=== PATIENT | male | born 1940 | race Caucasian/White ===

== ENCOUNTER 2017-06-20 12:42 | Inpatient (IN) | payer MEDICARE, OTHER ==
[2017-06-20] MEDS ORDERED: Pantoprazole 40 MG Vial IVPUSH ONE (13:41)
--- NOTE | 2017-06-20 13:44 | EDM.PDOC ---
ED HPI GENERAL MEDICAL PROBLEM - General Chief Complaint: Gastrointestinal Problem Stated Complaint: CONFUSED,VOMITING,BACK PAIN Time Seen by Provider: 06/20/17 13:22 Source of Information: Reports: Patient History Limitations: Reports: No Limitations - History of Present Illness INITIAL COMMENTS - FREE TEXT/NARRATIVE: Patient is a 68-year-old male with a history of tia's and GI bleed who presents to the ED with complaints of dark tarry stools. Patient is on xarelto. Also has a history of early onset dementia/Alzheimer's. Patient's had 3 bowel movements earlier today described as black in color large volume. Of note states she found the patient had vomited approximately 1:00 last night while sleeping. It appeared to be his diet soda. Patient's had no additional episodes of vomiting since this episode. There is concerns of patient may have aspirated due to some mild wheezing present. He has no cough at this point. In addition states patient has had some episodes of increased confusion over the past day or so. He is back to baseline this afternoon. Patient has no dizziness, fever/chills, nausea/vomiting, chest pain, shortness of breath, abdominal pain, dysuria, or any additional complaints. - Related Data Allergies Allergy/AdvReac Type Severity Reaction Status Date / Time No Known Allergies Allergy Verified 06/20/17 12:50 Home Meds: Home Meds Furosemide [Lasix] 40 mg PO DAILY 01/06/16 [History] Propranolol [Inderal LA] 80 mg PO DAILY 01/06/16 [History] Rivaroxaban [Xarelto] 1 tab PO DAILY 01/06/16 [History] atorvaSTATin [Lipitor] 80 mg PO DAILY 01/06/16 [History] B2/Vit A,C & E/Lut/Zeaxanth/Mn [Icaps] 1 tab PO DAILY 06/20/17 [History] Donepezil [Aricept] 10 mg PO BEDTIME 06/20/17 [History] Erythromycin Base [Erythromycin 0.5% Ophth Oint] 1 applic EYERT BEDTIME [History] Venlafaxine HCl [Venlafaxine ER] 75 mg PO DAILY 06/20/17 [History] Past Medical History Cardiovascular History: Reports: Afib Gastrointestinal History: Reports: GI Bleed - Past Surgical History Cardiovascular Surgical History: Reports: Aneurysm, Other (See Below) Other Cardiovascular Surgeries/Procedures: aneurysm repair Social & Family History - Tobacco Use Smoking Status *Q: Unknown Ever Smoked ED ROS GENERAL - Review of Systems Review Of Systems: ROS reveals no pertinent complaints other than HPI. ED EXAM, GI/ABD - Physical Exam Exam: See Below Exam Limited By: No Limitations General Appearance: Alert, WD/WN, No Apparent Distress Ears: Hearing Grossly Normal Nose: Normal Inspection Throat/Mouth: Normal Voice, No Airway Compromise, Other (Oral mucosa is moist) Neck: Normal Inspection, Supple Respiratory/Chest: No Respiratory Distress, Lungs Clear, Normal Breath Sounds, No Accessory Muscle Use, Chest Non-Tender Cardiovascular: Normal Peripheral Pulses, Regular Rate, Rhythm, Systolic Murmur (Faint) GI/Abdominal Exam: Normal Bowel Sounds, Soft, Non-Tender, No Organomegaly, No Distention Rectal (Males) Exam: Normal Rectal Tone, Black Stool, Heme + Stool. No: Tenderness Back Exam: Normal Inspection Extremities: Normal Inspection, Normal Range of Motion, Non-Tender, No Pedal Edema Neurological: Alert, Oriented, CN II-XII Intact, Normal Cognition, No Motor/ Sensory Deficits, Other (moves all extremities. no slurred speech. ) Psychiatric: Normal Affect, Normal Mood Skin Exam: Warm, Dry, Intact Course - Vital Signs Last Recorded V/S: Last Vital Signs Temp 96.8 F 06/21/17 14:00 Pulse 121 H 06/21/17 18:07 Resp 20 06/21/17 18:07 BP 182/158 H 06/21/17 17:08 Pulse Ox 97 06/21/17 18:07 - Orders/Labs/Meds Labs: Laboratory Tests 06/20/17 06/20/17 06/20/17 Range/Units 02:03 02:03 14:03 WBC 7.20 (4.23-9.07) K/mm3 RBC 3.32 L (4.63-6.08) M/mm3 Hgb 9.5 L (13.7-17.5) gm/L Hct 30.7 L (40.1-51.0) % MCV 92.5 H (79.0-92.2) fl MCH 28.6 (25.7-32.2) pg MCHC 30.9 L (32.2-35.5) g/dl RDW Std Deviation 50.1 H (35.1-43.9) fL Plt Count 207 (163-337) K/mm3 MPV 9.9 (9.4-12.3) fl Neut % (Auto) 64.4 (34.0-67.9) % Lymph % (Auto) 22.9 (21.8-53.1) % Emanuel % (Auto) 11.1 (5.3-12.2) % Eos % (Auto) 1.0 (0.8-7.0) Baso % (Auto) 0.3 (0.1-1.2) % Neut # (Auto) 4.64 (1.78-5.38) K/mm3 Lymph # (Auto) 1.65 (1.32-3.57) K/mm3 Emanuel # (Auto) 0.80 (0.30-0.82) K/mm3 Eos # (Auto) 0.07 (0.04-0.54) K/mm3 Baso # (Auto) 0.02 (0.01-0.08) K/mm3 PT (8.0-13.0) SECONDS INR APTT (22-36) SECONDS Sodium (136-145) mEq/L Potassium (3.5-5.1) mEq/L Chloride (98-107) mEq/L Carbon Dioxide (21-32) mEq/L Anion Gap (5-15) BUN (7-18) mg/dL Creatinine (0.7-1.3) mg/dL Est Cr Clr Drug Dosing mL/min Estimated GFR (MDRD) (>60) mL/min BUN/Creatinine Ratio (14-18) Glucose (83-115) mg/dL Calcium (8.5-10.1) mg/dL Total Bilirubin (0.2-1.0) mg/dL AST (15-37) U/L ALT (16-63) U/L Alkaline Phosphatase (46-116) U/L Troponin I (0.00-0.056) ng/mL C-React Prot High Sens 2.31 mg/L Total Protein (6.4-8.2) g/dl Albumin (3.4-5.0) g/dl Globulin gm/dL Albumin/Globulin Ratio (1-2) Blood Type B POSITIVE Gel Antibody Screen Negative 11/06/17 11/06/17 11/06/17 Range/Units 14:03 14:03 14:03 WBC (4.23-9.07) K/mm3 RBC (4.63-6.08) M/mm3 Hgb (13.7-17.5) gm/L Hct (40.1-51.0) % MCV (79.0-92.2) fl MCH (25.7-32.2) pg MCHC (32.2-35.5) g/dl RDW Std Deviation (35.1-43.9) fL Plt Count (163-337) K/mm3 MPV (9.4-12.3) fl Neut % (Auto) (34.0-67.9) % Lymph % (Auto) (21.8-53.1) % Emanuel % (Auto) (5.3-12.2) % Eos % (Auto) (0.8-7.0) Baso % (Auto) (0.1-1.2) % Neut # (Auto) (1.78-5.38) K/mm3 Lymph # (Auto) (1.32-3.57) K/mm3 Emanuel # (Auto) (0.30-0.82) K/mm3 Eos # (Auto) (0.04-0.54) K/mm3 Baso # (Auto) (0.01-0.08) K/mm3 PT 12.5 (8.0-13.0) SECONDS INR 1.14 APTT 32 (22-36) SECONDS Sodium 141 (136-145) mEq/L Potassium 4.6 (3.5-5.1) mEq/L Chloride 109 H (98-107) mEq/L Carbon Dioxide 22 (21-32) mEq/L Anion Gap 14.6 (5-15) BUN 64 H (7-18) mg/dL Creatinine 1.1 (0.7-1.3) mg/dL Est Cr Clr Drug Dosing 51.74 mL/min Estimated GFR (MDRD) > 60 (>60) mL/min BUN/Creatinine Ratio 58.2 H (14-18) Glucose 99 (83-115) mg/dL Calcium 8.7 (8.5-10.1) mg/dL Total Bilirubin 0.7 (0.2-1.0) mg/dL AST 24 (15-37) U/L ALT 25 (16-63) U/L Alkaline Phosphatase 99 (46-116) U/L Troponin I 0.025 (0.00-0.056) ng/mL C-React Prot High Sens mg/L Total Protein 6.5 (6.4-8.2) g/dl Albumin 3.1 L (3.4-5.0) g/dl Globulin 3.4 gm/dL Albumin/Globulin Ratio 0.9 L (1-2) Blood Type Gel Antibody Screen Meds: Medications Discontinued Medications Generic Name Dose Route Start Last Admin Trade Name Freq PRN Reason Stop Dose Admin Acetaminophen 650 mg 06/20/17 17:49 Tylenol RECTAL Q4H PRN Pain (mild 1-3) Albuterol/Ipratropium 3 ml 06/20/17 17:49 Duoneb 3.0-0.5 Mg/3 Ml NEB Q4H PRN Shortness Of Breath/wheezing Ceftriaxone Sodium 2 gm 06/21/17 18:00 Rocephin IVPUSH Q24H MARILYNN Erythromycin gm 06/20/17 21:00 Erythromycin 0.5% Ophth Oint EYERT BEDTIME MARILYNN Furosemide 40 mg 06/21/17 09:00 Lasix PO DAILY MARILYNN Furosemide 20 mg 06/21/17 14:14 06/21/17 16:34 Lasix IVPUSH 06/21/17 14:15 Not Given ONETIME ONE Furosemide 20 mg 06/21/17 16:33 06/21/17 17:09 Lasix IVPUSH 06/21/17 16:34 20 mg ONETIME ONE Administration Haloperidol Lactate Confirm 06/20/17 23:07 06/20/17 23:25 Haldol Administered 06/20/17 23:08 Not Given Dose 5 mg .ROUTE .STK-MED ONE Haloperidol Lactate 3 mg 06/20/17 23:17 06/20/17 23:24 Haldol IM 06/20/17 23:18 3 mg ONETIME ONE Administration Haloperidol Lactate 2 mg 06/20/17 23:20 06/20/17 23:26 Haldol IM 06/20/17 23:21 2 mg ONETIME ONE Administration Haloperidol Lactate 2 mg 06/20/17 23:38 06/20/17 23:51 Haldol IM 06/20/17 23:39 2 mg ONETIME ONE Administration Haloperidol Lactate 5 mg 06/21/17 08:20 11/07/17 08:34 Haldol IM 06/21/17 08:21 5 mg ONETIME ONE Administration Haloperidol Lactate 5 mg 06/21/17 11:14 Haldol IM Q8H PRN restlessness Haloperidol Lactate Confirm 06/21/17 11:51 06/21/17 12:17 Haldol Administered 06/21/17 11:52 Not Given Dose 5 mg .ROUTE .STK-MED ONE Haloperidol Lactate 2 mg 06/21/17 11:56 06/21/17 12:12 Haldol IVPUSH 06/21/17 11:57 2 mg ONETIME ONE Administration Haloperidol Lactate 4 mg 06/21/17 15:18 06/21/17 15:29 Haldol IVPUSH 06/21/17 15:19 4 mg ONETIME ONE Administration Haloperidol Lactate 2 mg 06/21/17 17:13 06/21/17 17:23 Haldol IVPUSH 06/21/17 17:14 2 mg ONETIME ONE Administration Hydralazine HCl 20 mg 06/20/17 18:06 Apresoline PO Q6H PRN Hypertension Hydromorphone HCl 0.25 mg 06/20/17 17:49 Dilaudid IVPUSH Q2H PRN Pain (severe 7-10) Hydromorphone HCl 0.25 mg 06/21/17 08:37 Dilaudid IVPUSH Q2H PRN Pain (severe 7-10) Sodium Chloride 1,000 mls @ 75 mls/hr 06/20/17 13:45 06/20/17 14:55 Normal Saline IV 75 mls/hr ASDIRECTED MARILYNN Administration Ceftriaxone Sodium 2 gm/ 100 mls @ 200 mls/hr 06/21/17 17:42 06/21/17 17:57 Sodium Chloride IV 06/21/17 18:11 200 mls/hr ONETIME ONE Administration Levalbuterol HCl 0.63 mg 06/21/17 13:57 06/21/17 14:23 Xopenex NEB 0.63 mg Q6HRRT PRN Administration Dyspnea Lorazepam 1 mg 06/20/17 22:13 06/21/17 11:43 Ativan IVPUSH 1 mg Q6H PRN Administration anxiety Lorazepam Confirm 06/20/17 23:07 06/20/17 23:25 Ativan Administered 06/20/17 23:08 Not Given Dose 2 mg .ROUTE .STK-MED ONE Lorazepam 2 mg 06/20/17 23:21 06/20/17 23:26 Ativan IM 06/20/17 23:22 2 mg ONETIME ONE Administration Lorazepam 1 mg 06/20/17 23:38 06/20/17 23:50 Ativan IM 06/20/17 23:39 1 mg ONETIME ONE Administration Lorazepam 1 mg 06/21/17 08:26 Ativan IM Q4H PRN restlessness Lorazepam 2 mg 06/21/17 11:14 Ativan IM Q6H PRN Anxiety Lorazepam 1 mg 06/21/17 12:07 06/21/17 12:13 Ativan IVPUSH 06/21/17 12:08 1 mg ONETIME ONE Administration Lorazepam Confirm 06/21/17 12:05 06/21/17 12:17 Ativan Administered 06/21/17 12:06 Not Given Dose 2 mg .ROUTE .STK-MED ONE Lorazepam 1 mg 06/21/17 15:20 06/21/17 15:32 Ativan IVPUSH 06/21/17 15:21 1 mg ONETIME ONE Administration Lorazepam 1 mg 06/21/17 17:14 06/21/17 17:23 Ativan IVPUSH 06/21/17 17:15 1 mg ONETIME ONE Administration Metoprolol Tartrate 5 mg 06/20/17 18:06 06/21/17 13:53 Lopressor IVPUSH 5 mg Q4H PRN Administration Tachycardia Metoprolol Tartrate 5 mg 06/21/17 16:24 06/21/17 17:08 Lopressor IVPUSH 06/21/17 16:25 5 mg ONETIME ONE Administration Pantoprazole Sodium 80 mg 06/20/17 13:41 06/20/17 14:56 Protonix Iv IVPUSH 06/20/17 13:42 80 mg .BOLUS ONE Administration Pantoprazole Sodium 40 mg 06/20/17 21:00 06/21/17 11:49 Protonix Iv IVPUSH Not Given Q12H MARILYNN Propranolol HCl 80 mg 06/21/17 09:00 06/21/17 11:49 Inderal La PO Not Given DAILY MARILYNN Sodium Chloride 10 ml 06/20/17 13:41 06/20/17 16:55 Saline Flush FLUSH 10 ml ASDIRECTED PRN Administration Keep Vein Open Venlafaxine HCl 75 mg 06/21/17 09:00 06/21/17 11:49 Effexor Xr PO Not Given DAILY MARILYNN - Re-Assessments/Exams Free Text/Narrative Re-Assessment/Exam: On examination there is dark tarry stool present that was positive for blood. Peripheral IV started with normal saline 75 mL/h and Protonix 80 mg IVP. Initial labs and studies include CBC, chem 14, CRP, coag studies, type and screen, chest x-ray one view, and EKG. EKG interpretation with a rate of 58 with a left bundle branch block. Attempting to get a copy of last EKG from PCP to compare with. Troponin ordered. 06/20/17 14:35 Attempted to obtain IV access with ultrasound with good flash. No success 2. Nursing staff will try again. Labs reviewed: White cell consent 0.0, hemoglobin 9.5, hematocrit 30.7, platelet count 207, sodium 141, potassium 4.6, AG 14.6, BUN 64, creatinine 1.1, glucose 99, LFTs within normal limits, and troponin 0.025. The patient's blood type is B+ with a negative gel antibody screen. 06/20/17 15:[address] Bates requests admit to hospitalists with him consulted. Spoke with Dr. Bernstein [facility] hospitalists. She check bed status and get back to me. 06/20/[address] Bernstein [facility] hospitalist. She states previous admission patient was transferred to [place] and underwent cauterization of multiple spots due to bleeding. Unclear if this is upper or lower GI. Spoke with the family and they are okay with being admitted here and having Dr. Bates perform EGD/colonoscopy. I spoke with Dr. Bates [facility]ason General Surgeon. He states admit to hospitalists. MCG placed per Juanita with [employer]. Departure - Departure Time of Disposition: 16:29 Disposition: Admitted As Inpatient 64 Clinical Impression: GI (gastrointestinal bleed) Qualifiers: GI bleed type/associated pathology: melena Qualified Code(s): K92.1 - Melena - Discharge Information
[2017-06-20] MEDS ORDERED: Sodium Chloride 0.9% 1,000 ML IV SCH (13:45)
[2017-06-20] MEDS: Sodium Chloride 0.9% 10 ML Syringe FLUSH PRN ×2 (14:59→16:55)
[2017-06-20] MEDS ORDERED: Acetaminophen 650 MG Supp RECTAL PRN (17:49)
[2017-06-20] MEDS ORDERED: HYDROmorphone 1 MG/ML Syringe IVPUSH PRN (17:49)
[2017-06-20] MEDS ORDERED: Albuterol/Ipratropium 3.0-0.5 MG/3 ML Neb Soln NEB PRN (17:49)
[2017-06-20] MEDS ORDERED: Metoprolol Tartrate 5 MG/5 ML SDV IVPUSH PRN (18:06)
[2017-06-20] MEDS ORDERED: hydrALAZINE 10 MG Tab PO PRN (18:06)
--- NOTE | 2017-06-20 18:14 | PCM.HP ---
H&P History of Present Illness - General Date of Service: 06/20/17 Admit Problem/Dx: Admission Diagnosis/Problem Admission Diagnosis/Problem GI bleed requiring more than 4 units of blood in 24 hours, ICU, or surgery Source of Information: Patient, Family, Old Records, Provider, RN, RN Notes Reviewed History Limitations: Reports: No Limitations - History of Present Illness Initial Comments - Free Text/Narative: Jefferson Reynoso is a 76 yo male who presented to our ED today with dark tarry stools. Has a history of stroke and GI bleed and is on Xarelto. He also has a history of an abdominal aneurysm repair. His reports history of early- onset dementia/Alzheimer's. His reportedly had 3 bowel movements today that were black in color and large volume. is also reporting that around 1:00 last night the patient vomited and was found with what appears to be diet soda. There some concern the patient may have aspirated although he has no cough. Mild wheezing is noted in the ER. He does some increased confusion over the past few days however he is back to normal on ED presentation. Denies dizziness , fever, chills, nausea, vomiting, chest pain, shortness of breath, abdominal pain, or dysuria. In the ER temp was 97.3 Fahrenheit. Pulse 94. Respirations elevated at 24. Blood pressure elevated at 155/93. Pulse ox 95. Labs were obtained: WBC 7.2. Hemoglobin low at 9.5. Hematocrit low at 30.7. He is slightly macrocytic. Platelets normal at 207,000. Neutrophils 64.4%. PT 12.5. INR 1.14. APTT 32. Sodium normal at 141. Potassium normal 4.6. Chloride high at 109. Carbon dioxide good at 22. Anion gap 14.6. BUN elevated at 64. Creatinine 1.1. EGFR greater than 60. Glucose 99. Calcium 8.7. Bilirubin normal at 0.7. Liver enzymes are good with AST 24 ALT 25 alkaline phosphatase 99. Troponin negative at 0.025. Protein good at 6.5. Albumin low at 3.1. Blood type is B+ . Antibody screen is negative. CRP is still pending. Physical examination revealed dark tarry stool present. This was found to be positive for blood. Normal saline was started and protonix 80 mg IV push was given. Twelve-lead EKG revealed a rate of 58 with a left bundle branch block. This was interpreted by the ED provider. The ED provider spoke with Dr. Bates, the surgeon senior functional analyst and he agreed to see the patient after he was formally admitted to the ICU. It is reported in the past the patient was brought here for a GI bleed and was later sent to [place] due to concerns over the patient's cardiac function. He was subsequently admitted to the ICU. He is a DNR/DNI. His a patient of Dr. Hoang at [facility] here in [place]. - Related Data Allergies/Adverse Reactions: Allergies Allergy/AdvReac Type Severity Reaction Status Date / Time No Known Allergies Allergy Verified 06/20/17 12:50 Home Medications: Home Meds Furosemide [Lasix] 40 mg PO DAILY 01/06/16 [History] Propranolol [Inderal LA] 80 mg PO DAILY 01/06/16 [History] Rivaroxaban [Xarelto] 1 tab PO DAILY 01/06/16 [History] atorvaSTATin [Lipitor] 80 mg PO DAILY 01/06/16 [History] B2/Vit A,C & E/Lut/Zeaxanth/Mn [Icaps] 1 tab PO DAILY 06/20/17 [History] Donepezil [Aricept] 10 mg PO BEDTIME 06/20/17 [History] Erythromycin Base [Erythromycin 0.5% Ophth Oint] 1 applic EYERT BEDTIME [History] Venlafaxine HCl [Venlafaxine ER] 75 mg PO DAILY 06/20/17 [History] Past Medical History Cardiovascular History: Reports: Afib Gastrointestinal History: Reports: GI Bleed Neurological History: Reports: TIA - Past Surgical History Cardiovascular Surgical History: Reports: Aneurysm, Other (See Below) Other Cardiovascular Surgeries/Procedures: aneurysm repair Social & Family History - Family History Family Medical History: Noncontributory - Tobacco Use Smoking Status *Q: Former Smoker Used Tobacco, but Quit: Yes Month Tobacco Last Used: febuary - Caffeine Use Caffeine Use: Reports: Coffee - Alcohol Use Days Per Week of Alcohol Use: 1 Number of Drinks Per Day: 1 Total Drinks Per Week: 1 - Recreational Drug Use Recreational Drug Use: No H&P Review of Systems - Review of Systems: Review Of Systems: See Below General: Reports: No Symptoms HEENT: Reports: No Symptoms Pulmonary: Reports: No Symptoms Cardiovascular: Reports: No Symptoms Gastrointestinal: Reports: No Symptoms Genitourinary: Reports: No Symptoms Musculoskeletal: Reports: No Symptoms Skin: Reports: No Symptoms Psychiatric: Reports: Confusion. Denies: Depression, Anxiety, Hallucinations Neurological: Reports: Confusion (Worse yesterday, however back at baseline), Pre-Existing Deficit. Denies: Dizziness, Headache, Numbness, Seizure, Tingling Hematologic/Lymphatic: Reports: No Symptoms Immunologic: Reports: No Symptoms Review of Systems Comment:: Patient's assisted with answering many of the history of present illness questions. The patient was confused, however the reports this is his normal baseline. Exam - Exam Exam: See Below - Vital Signs Vital Signs: Last Vital Signs Temp 97.9 F 06/20/17 17:22 Pulse 94 06/20/17 12:50 Resp 18 06/20/17 17:22 BP 150/88 H 06/20/17 17:22 Pulse Ox 98 06/20/17 17:53 Weight: 213 lb 9.6 oz - Exam Quality Assessment: DVT Prophylaxis General: Alert, Cooperative, Other (Somewhat confused) HEENT: Conjunctiva Clear, EACs Clear, EOMI, Hearing Intact, Mucosa Moist & [place] , Nares Patent, Normal Nasal Septum, Posterior Pharynx Clear, TMs Clear, PERRLA Neck: Supple, Trachea Midline. No: JVD, Thyromegaly Lungs: Clear to Auscultation, Normal Respiratory Effort Cardiovascular: Regular Rate, Regular Rhythm, Systolic Murmur (St.) GI/Abdominal Exam: Normal Bowel Sounds, Soft, Non-Tender, No Organomegaly, No Distention, No Abnormal Bruit, No Mass, Pelvis Stable (Male) Exam: Deferred Rectal (Males) Exam: Deferred Back Exam: Normal Inspection, Full Range of Motion Extremities: Normal Inspection, Normal Range of Motion, Non-Tender, No Pedal Edema, Normal Capillary Refill Peripheral Pulses: 2+: Radial (L), Radial (R), Posterior Tibial (L), Posterior Tibial (R), Dorsalis Pedis (L), Dorsalis Pedis (R) Skin: Warm, Dry, Intact Neurological: Cranial Nerves Intact Neuro Extensive - Mental Status: Alert, Normal Mood/Affect, Normal Cognition, Memory Intact, Other (Mild baseline confusion) Neuro Extensive - Motor, Sensory, Reflexes: CN II-XII Intact (Grossly) Psychiatric: Alert, Normal Affect, Normal Mood - Patient Data Result Diagrams: 06/20/17 14:03 06/20/17 14:03 *Q Meaningful Use (ADM) - VTE *Q VTE Criteria *Q: - Stroke *Q Stroke Criteria *Q: - AMI *Q AMI Criteria *Q: - Problem List (1) GI (gastrointestinal bleed) SNOMED Code(s): 49155007 ICD Code: K92.2 - GASTROINTESTINAL HEMORRHAGE, UNSPECIFIED Status: Acute Priority: High Current Visit: Yes Qualifiers: GI bleed type/associated pathology: melena Qualified Code(s): K92.1 - Melena (2) Anemia SNOMED Code(s): 783566916 ICD Code: D64.9 - ANEMIA, UNSPECIFIED Status: Acute Priority: High Current Visit: Yes Qualifiers: Anemia type: unspecified type Qualified Code(s): D64.9 - Anemia, unspecified (3) Dementia SNOMED Code(s): 17263278 ICD Code: F03.90 - UNSPECIFIED DEMENTIA WITHOUT BEHAVIORAL DISTURBANCE Status: Acute Priority: Low Current Visit: Yes Qualifiers: Dementia type: Alzheimer's disease Alzheimer's disease onset: early-onset Dementia behavioral disturbance: without behavioral disturbance Qualified Code(s): G30.0 - Alzheimer's disease with early onset; F02.80 - Dementia in other diseases classified elsewhere without behavioral disturbance; F02.80 - Dementia in other diseases classified elsewhere without behavioral disturbance; F02.80 - Dementia in other diseases classified elsewhere without behavioral disturbance Problem List Initiated/Reviewed/Updated: Yes Orders Last 24hrs: Active Orders 24 hr Category Date Time Status Patient Status [ADT] Routine ADT 06/20/17 17:49 Active Antiembolic Devices [RC] PER UNIT ROUTINE Care 06/20/17 17:54 Active Bedrest Bedside Commode [RC] ASDIRECTED Care 06/20/17 17:49 Active Cardiac Monitoring [RC] CONTINUOUS Care 06/20/17 17:53 Active Height and Weight [RC] DAILY Care 06/20/17 17:49 Active Intake and Output [RC] QSHIFT Care 06/20/17 17:53 Active Notify Provider Consults [RC] ASDIRECTED Care 06/20/17 17:57 Active Oxygen Therapy [RC] PRN Care 06/20/17 17:49 Active Pulse Oximetry [RC] PRN Care 06/20/17 17:53 Active RT Aerosol Therapy [RC] ASDIRECTED Care 06/20/17 17:57 Active VTE/DVT Education [RC] PER UNIT ROUTINE Care 06/20/17 17:49 Active Vital Signs [RC] Q2HR Care 06/20/17 17:49 Active Consult to Case Management [CONS] Routine Cons 06/20/17 17:49 Active Consult to Physician [CONS] Routine Cons 06/20/17 17:49 Active Consult to Senior Quality Manager [CONS] Routine Cons 06/20/17 17:49 Active Clear Liquid Diet [DIET] Diet 06/20/17 Dinner Active Head wo Cont [CT] Urgent Exams 06/20/17 17:59 Ordered Acetaminophen [Tylenol] Med 06/20/17 17:49 Ordered 650 mg RECTAL Q4H PRN Albuterol/Ipratropium [DuoNeb 3.0-0.5 MG/3 ML] Med 06/20/17 17:49 Ordered 3 ml NEB Q4H PRN Furosemide [Lasix] Med 06/21/17 09:00 Ordered 40 mg PO DAILY HYDROmorphone [Dilaudid] Med 06/20/17 17:49 Ordered 0.25 mg IVPUSH Q2H PRN Metoprolol Tartrate [Lopressor] Med 06/20/17 18:06 Ordered 5 mg IVPUSH Q4H PRN Pantoprazole [ProTONIX IV] Med 06/20/17 18:15 Ordered 40 mg IVPUSH Q12H Propranolol [Inderal LA] Med 06/21/17 09:00 Ordered 80 mg PO DAILY Venlafaxine [Effexor XR] Med 06/21/17 09:00 Ordered 75 mg PO DAILY hydrALAZINE [Apresoline] Med 06/20/17 18:06 Ordered 20 mg PO Q6H PRN Sequential Compression Device [OM.PC] Per Unit Routine Oth 06/20/17 17:53 Ordered Resuscitation Status Routine Resus Stat 06/20/17 17:49 Ordered Medication Orders Acetaminophen (Tylenol) 650 mg RECTAL Q4H PRN PRN Reason: Pain (mild 1-3) Albuterol/Ipratropium (Duoneb 3.0-0.5 Mg/3 Ml) 3 ml NEB Q4H PRN PRN Reason: Shortness Of Breath/wheezing Furosemide (Lasix) 40 mg PO DAILY [facility] Hydralazine HCl (Apresoline) 20 mg PO Q6H PRN PRN Reason: Hypertension Hydromorphone HCl (Dilaudid) 0.25 mg IVPUSH Q2H PRN PRN Reason: Pain (severe 7-10) Sodium Chloride (Normal Saline) 1,000 mls @ 75 mls/hr IV ASDIRECTED MARILYNN Last Admin: 06/20/17 14:55 Dose: 75 mls/hr Metoprolol Tartrate (Lopressor) 5 mg IVPUSH Q4H PRN PRN Reason: Tachycardia Pantoprazole Sodium (Protonix Iv) 40 mg IVPUSH Q12H MAR[facility] Propranolol HCl (Inderal La) 80 mg PO DAILY [facility] Sodium Chloride (Saline Flush) 10 ml FLUSH ASDIRECTED PRN PRN Reason: Keep Vein Open Last Admin: 06/20/17 16:55 Dose: 10 ml Admin: 06/20/17 14:59 Dose: 10 ml Venlafaxine HCl (Effexor Xr) 75 mg PO DAILY [facility] Assessment/Plan Comment:: I/P: GI bleed -Melena noted with large bowel movements by -Positive heme in stool in ED -No nausea or vomiting -Hx/o GI bleed in the past with transfer to [place] for intervention -Hgb 9.5 in ED -Hct 30.7 in ED -Hx/o a-fib - on Xarelto - will hold for now -BP elevated 155/93 in ED - PRN BP meds as ordered -PT 12.5 -INR 1.14 -APTT 32 -B positive blood type with negative antibody screen -Clear liquid diet for now -Dr. Bates, surgeon on-call to consult -[id number] score of 5 -HAS-BLED score of 4 Anemia -See above Confusion -At baseline currently, very mild -Was found having vomited last night by -Reportedly dx'ed with early onset dementia -prior TIAs -Will order head CT -Atrophy and senescent changes, nothing acute per Dr. Bean read ? aspiration per ED report -Lung sounds clear -Afebrile -No cough -WBC normal -Consider chest x-ray in 24-48 hours, if warranted -Continue to monitor -HOB at 30 degrees -Aspiration precautions HTN -PRN medications as ordered -Home medications as indicated Chronic: Hx/o abdominal aortic aneurism repair Hx/o prior GI bleed A-fib Hx/o TIAs Depression HLD Plan: Admit to ICU - continuous cardiac monitoring CM/SW for discharge planning Home medications as indicated Other orders as listed above Routine AM lab draw Monitor BP/HR, labs for hemodynamic stability GI prophylaxis PE/DVT prophylaxis - SCDs Code Status: DNR/DNI, His PCP is Dr. Hoang at [facility] here in [place].
--- NOTE | 2017-06-20 19:25 | CT ---
Head CT Technique: Multiple axial sections through the brain were obtained. Intravenous contrast was not utilized. Comparison: No prior intracranial imaging. Findings: Ventricles along with basal cisterns and sulci over the convexities are prominent compatible with atrophy. Atrophy is more prominent over the cortical regions. No abnormal parenchymal densities are seen. No evidence of intracranial hemorrhage. No midline shift or mass effect is seen. Visualized sinuses are clear. No acute calvarial abnormality is seen. Atherosclerotic calcification is noted within the vertebral vessels and within the carotid siphon. Impression: 1. Generalized atrophy and other senescent change. 2. No acute intracranial abnormality is identified. Diagnostic code #2
[2017-06-20] MEDS ORDERED: Erythromycin Base 0.5% Ophth Oint 1 GM Tube EYERT SCH (21:00)
[2017-06-20] MEDS ORDERED: LORazepam 2 MG/ML MDV IVPUSH PRN (22:13)
[2017-06-20] MEDS ORDERED: Haloperidol Lactate 5 MG/ML SDV ONE (23:07)
[2017-06-20] MEDS ORDERED: LORazepam 2 MG/ML MDV ONE (23:07)
[2017-06-20] MEDS ORDERED: Haloperidol Lactate 5 MG/ML SDV IM ONE ×3 (23:17→23:38)
[2017-06-20] MEDS ORDERED: LORazepam 2 MG/ML MDV IM ONE ×2 (23:21→23:38)
[2017-06-20] MEDS: Pantoprazole 40 MG Vial IVPUSH SCH (23:52)
--- NOTE | 2017-06-21 00:29 | PCM.SN ---
- Free Text/Narrative Note: Was called by nursing to respond in the room of Jefferson Reynoso in ICU at approximately 2307. Upon arrival to room I found patient sitting on side of bed. As I walked in patient attempted to take a closed fist swing at one of the nurses. The patient was pulling off wires and screaming "get me the fuck out of here." Nurse reports the patient had become rapidly agitated. He had thrown a cup of water and his . Patient was very agitated. He stated "I'm going to blow this fucking place up" and "I'm going to kill you all." I attempted to de-escalate that situation as I had spoken to the patient earlier and he was very friendly. The patients attempted to de-escalate the situation as well, noting they both know my father well. The patient was also talking about how his "friends in the hallway" were going to come in and "make us all sorry." He acknowledged many people in the room that were not there. His was present and I asked her if she knew any of the people he was talking about. She had no idea with these people were. She was very distraught and was attempting to calm the patient. He repeatedly cursed at her. She reported that he has never acted like this before and she was "shocked at how angry he was." As verbal de-escalation was failing the decision was made to move onto chemical restraints at approximately 2320. The patient was given 2 mg of Versed along with 3 mg of Haldol IM. The IV was clearly non- patent as the patient had attempted to pull at it. There was blood and IV fluid noted around the Tegaderm. This had no response. After 10-15 mins another 2 mg of Haldol was given with minimal response. An attempt was made to assist patient into bed, however he continued to fight staff. Several minutes later 1 mg of versed was given. The patient was still actively fighting staff and difficult to control. 2mg of Haldol was again given and the patient began to get sleepy. Room lights were dimmed and the patient settled more into bed. Pulse ox was applied to monitor patients respirations. Oxygen saturations were 98-100% on room air. Good inspiratory and expiratory chest movement was noted. The shaper hand was re-applied as the patient had pulled it off and attempted to throw it. This showed a-fib with a rate in the 120-130s. This quickly subsided to 100-115s. He was not hot to the touch. He is not diabetic and blood glucose was normal in the ED. Of note: I ordered a head CT earlier due to mild confusion and prior TIAs, which showed senescent changes and brain atrophy but no masses or acute bleeds were noted. HOB was elevated to 30 degrees. Patient is in ICU and nursing will be watching patient closely. Bed alarm was set. Advised nursing to monitor HR and oxygen saturations closely. Titrate oxygen as needed. Monitor for respiratory arrest. I discussed situation with patients and explained procedure with her as she was visibly distraught. I personally checked on the patient multiple times and found him snoring with good saturations and a-fib in 100s-115s. The patient does have dementia. Electrolytes from earlier in day in ED were good. Most recent hgb was satisfactory as patient has GI bleed. Will continue to monitor.
--- NOTE | 2017-06-21 07:48 | CR ---
Chest: Portable view of the chest was obtained. Comparison: Prior chest x-ray is not available. Heart is slightly enlarged. Tortuous thoracic aorta is seen. Lungs are clear. Chronic rotator cuff tear seen within the right shoulder. Old healed right clavicle fracture is noted. Trachea appears to be narrowed. Impression: 1. Narrowing of the trachea. Difficult to exclude mediastinal adenopathy. Contrast-enhanced chest CT recommended to further evaluate. 2. Mild cardiomegaly and tortuous thoracic aorta. 3. Other incidental findings. Diagnostic code #9
[2017-06-21] MEDS ORDERED: Haloperidol Lactate 5 MG/ML SDV IM ONE (08:20)
[2017-06-21] MEDS ORDERED: LORazepam 2 MG/ML MDV IM PRN ×2 (08:26→11:14)
[2017-06-21] MEDS ORDERED: HYDROmorphone 0.5 MG/0.5 ML Syringe IVPUSH PRN (08:37)
[2017-06-21] MEDS ORDERED: Furosemide 40 MG Tab PO SCH (09:00)
[2017-06-21] MEDS ORDERED: Propranolol 80 MG Cap.ER PO SCH (09:00)
[2017-06-21] MEDS ORDERED: Venlafaxine 75 MG Cap.ER PO SCH (09:00)
--- NOTE | 2017-06-21 09:26 | PCM.PN ---
- General Info Date of Service: 06/21/17 - Patient Data Vitals - Most Recent: Last Vital Signs Temp 35.9 C 06/21/17 08:00 Pulse 91 06/21/17 06:00 Resp 20 06/21/17 08:00 BP 133/76 06/21/17 03:44 Pulse Ox 97 06/21/17 08:00 Weight - Most Recent: 97.795 kg I&O - Last 24 Hours: Intake & Output 06/20/17 06/21/17 06/21/17 22:59 06:59 14:59 Intake Total 560 600 Output Total 750 Balance -190 600 Lab Results Last 24 Hours: Laboratory Results - last 24 hr 06/20/17 06/21/17 06/21/17 Range/Units 20:50 06:20 06:20 WBC 7.83 (4.23-9.07) K/mm3 RBC 3.29 L (4.63-6.08) M/mm3 Hgb 9.4 L 9.5 L (13.7-17.5) gm/L Hct 29.9 L 30.5 L (40.1-51.0) % MCV 92.7 H (79.0-92.2) fl MCH 28.9 (25.7-32.2) pg MCHC 31.1 L (32.2-35.5) g/dl RDW Std Deviation 50.8 H (35.1-43.9) fL Plt Count 210 (163-337) K/mm3 MPV 10.1 (9.4-12.3) fl Neut % (Auto) 71.3 H (34.0-67.9) % Lymph % (Auto) 17.0 L (21.8-53.1) % [place] % (Auto) 10.3 (5.3-12.2) % Eos % (Auto) 1.0 (0.8-7.0) Baso % (Auto) 0.3 (0.1-1.2) % Neut # (Auto) 5.58 H (1.78-5.38) K/mm3 Lymph # (Auto) 1.33 (1.32-3.57) K/mm3 [place] # (Auto) 0.81 (0.30-0.82) K/mm3 Eos # (Auto) 0.08 (0.04-0.54) K/mm3 Baso # (Auto) 0.02 (0.01-0.08) K/mm3 Sodium 142 (136-145) mEq/L Potassium 4.2 (3.5-5.1) mEq/L Chloride 111 H (98-107) mEq/L Carbon Dioxide 22 (21-32) mEq/L Anion Gap 13.2 (5-15) BUN 42 H (7-18) mg/dL Creatinine 1.2 (0.7-1.3) mg/dL Est Cr Clr Drug Dosing 45.78 mL/min Estimated GFR (MDRD) 59 (>60) mL/min BUN/Creatinine Ratio 35.0 H (14-18) Glucose 110 (83-115) mg/dL Calcium 8.9 (8.5-10.1) mg/dL Magnesium 2.2 (1.8-2.4) mg/dl NT-Pro-B Natriuret Pep 2329 H (0-450) pg/mL Med Orders - Current: Current Medications Acetaminophen (Tylenol) 650 mg RECTAL Q4H PRN PRN Reason: Pain (mild 1-3) Albuterol/Ipratropium (Duoneb 3.0-0.5 Mg/3 Ml) 3 ml NEB Q4H PRN PRN Reason: Shortness Of Breath/wheezing Furosemide (Lasix) 40 mg PO DAILY [facility] Hydralazine HCl (Apresoline) 20 mg PO Q6H PRN PRN Reason: Hypertension Hydromorphone HCl (Dilaudid) 0.25 mg IVPUSH Q2H PRN PRN Reason: Pain (severe 7-10) Sodium Chloride (Normal Saline) 1,000 mls @ 75 mls/hr IV ASDIRECTED [facility] Last Admin: 06/20/17 14:55 Dose: 75 mls/hr Lorazepam (Ativan) 1 mg IVPUSH Q6H PRN PRN Reason: anxiety Lorazepam (Ativan) 1 mg IM Q4H PRN PRN Reason: restlessness Metoprolol Tartrate (Lopressor) 5 mg IVPUSH Q4H PRN PRN Reason: Tachycardia Pantoprazole Sodium (Protonix Iv) 40 mg IVPUSH Q12H [facility] Last Admin: 06/20/17 23:52 Dose: Not Given Propranolol HCl (Inderal La) 80 mg PO DAILY [facility] Sodium Chloride (Saline Flush) 10 ml FLUSH ASDIRECTED PRN PRN Reason: Keep Vein Open Last Admin: 06/20/17 16:55 Dose: 10 ml Venlafaxine HCl (Effexor Xr) 75 mg PO DAILY [facility] Discontinued Medications Erythromycin (Erythromycin 0.5% Ophth Oint) gm EYERT BEDTIME MARILY[facility] Haloperidol Lactate (Haldol) Confirm Administered Dose 5 mg .ROUTE .STK-MED ONE Stop: 06/20/17 23:08 Last Admin: 06/20/17 23:25 Dose: Not Given Haloperidol Lactate (Haldol) 3 mg IM ONETIME ONE Stop: 06/20/17 23:18 Last Admin: 06/20/17 23:24 Dose: 3 mg Haloperidol Lactate (Haldol) 2 mg IM ONETIME ONE Stop: 06/20/17 23:21 Last Admin: 06/20/17 23:26 Dose: 2 mg Haloperidol Lactate (Haldol) 2 mg IM ONETIME ONE Stop: 06/20/17 23:39 Last Admin: 06/20/17 23:51 Dose: 2 mg Haloperidol Lactate (Haldol) 5 mg IM ONETIME ONE Stop: 06/21/17 08:21 Last Admin: 06/21/17 08:34 Dose: 5 mg Hydromorphone HCl (Dilaudid) 0.25 mg IVPUSH Q2H PRN PRN Reason: Pain (severe 7-10) Lorazepam (Ativan) Confirm Administered Dose 2 mg .ROUTE .STK-MED ONE Stop: 06/20/17 23:08 Last Admin: 06/20/17 23:25 Dose: Not Given Lorazepam (Ativan) 2 mg IM ONETIME ONE Stop: 06/20/17 23:22 Last Admin: 06/20/17 23:26 Dose: 2 mg Lorazepam (Ativan) 1 mg IM ONETIME ONE Stop: 06/20/17 23:39 Last Admin: 06/20/17 23:50 Dose: 1 mg Pantoprazole Sodium (Protonix Iv) 80 mg IVPUSH .BOLUS ONE Stop: 06/20/17 13:42 Last Admin: 06/20/17 14:56 Dose: 80 mg - Plan Plan:: I/P: GI bleed -Melena noted with large bowel movements by -Positive heme in stool in ED -No nausea or vomiting -Hx/o GI bleed in the past with transfer to [place] for intervention -Hgb 9.5 in ED -Hct 30.7 in ED -Hx/o a-fib - on Xarelto - will hold for now -BP elevated 155/93 in ED - PRN BP meds as ordered -PT 12.5 -INR 1.14 -APTT 32 -B positive blood type with negative antibody screen -Clear liquid diet for now -Dr. Bates, surgeon on-call to consult -[id number] score of 5 -HAS-BLED score of 4 Anemia -See above Confusion -At baseline currently, very mild -Was found having vomited last night by -Reportedly dx'ed with early onset dementia -prior TIAs -Will order head CT -Atrophy and senescent changes, nothing acute per Dr. Bean read ? aspiration per ED report -Lung sounds clear -Afebrile -No cough -WBC normal -Consider chest x-ray in 24-48 hours, if warranted -Continue to monitor -HOB at 30 degrees -Aspiration precautions HTN -PRN medications as ordered -Home medications as indicated Chronic: Hx/o abdominal aortic aneurism repair Hx/o prior GI bleed A-fib Hx/o TIAs Depression HLD Plan: Admit to ICU - continuous cardiac monitoring CM/SW for discharge planning Home medications as indicated Other orders as listed above Routine AM lab draw Monitor BP/HR, labs for hemodynamic stability GI prophylaxis PE/DVT prophylaxis - SCDs Code Status: DNR/DNI, His PCP is Dr. Hoang at [facility] here in [place].
[2017-06-21] MEDS ORDERED: Haloperidol Lactate 5 MG/ML SDV IM PRN (11:14)
--- NOTE | 2017-06-21 11:28 | PCM.CONSN ---
- General Info Date of Service: 06/21/17 - Patient Data Vitals - Most Recent: Last Vital Signs Temp 96.6 F 06/21/17 08:00 Pulse 91 06/21/17 06:00 Resp 20 06/21/17 08:00 BP 133/76 06/21/17 03:44 Pulse Ox 97 06/21/17 08:00 Weight - Most Recent: 97.795 kg I&O - Last 24 Hours: Intake & Output 06/20/17 06/21/17 06/21/17 23:59 07:59 15:59 Intake Total 560 600 Output Total 750 150 Balance -190 600 -150 Lab Results Last 24 Hours: Laboratory Results - last 24 hr 06/20/17 06/21/17 06/21/17 Range/Units 20:50 06:20 06:20 WBC 7.83 (4.23-9.07) K/mm3 RBC 3.29 L (4.63-6.08) M/mm3 Hgb 9.4 L 9.5 L (13.7-17.5) gm/L Hct 29.9 L 30.5 L (40.1-51.0) % MCV 92.7 H (79.0-92.2) fl MCH 28.9 (25.7-32.2) pg MCHC 31.1 L (32.2-35.5) g/dl RDW Std Deviation 50.8 H (35.1-43.9) fL Plt Count 210 (163-337) K/mm3 MPV 10.1 (9.4-12.3) fl Neut % (Auto) 71.3 H (34.0-67.9) % Lymph % (Auto) 17.0 L (21.8-53.1) % [place] % (Auto) 10.3 (5.3-12.2) % Eos % (Auto) 1.0 (0.8-7.0) Baso % (Auto) 0.3 (0.1-1.2) % Neut # (Auto) 5.58 H (1.78-5.38) K/mm3 Lymph # (Auto) 1.33 (1.32-3.57) K/mm3 [place] # (Auto) 0.81 (0.30-0.82) K/mm3 Eos # (Auto) 0.08 (0.04-0.54) K/mm3 Baso # (Auto) 0.02 (0.01-0.08) K/mm3 Sodium 142 (136-145) mEq/L Potassium 4.2 (3.5-5.1) mEq/L Chloride 111 H (98-107) mEq/L Carbon Dioxide 22 (21-32) mEq/L Anion Gap 13.2 (5-15) BUN 42 H (7-18) mg/dL Creatinine 1.2 (0.7-1.3) mg/dL Est Cr Clr Drug Dosing 45.78 mL/min Estimated GFR (MDRD) 59 (>60) mL/min BUN/Creatinine Ratio 35.0 H (14-18) Glucose 110 (83-115) mg/dL Calcium 8.9 (8.5-10.1) mg/dL Magnesium 2.2 (1.8-2.4) mg/dl NT-Pro-B Natriuret Pep 2329 H (0-450) pg/mL Med Orders - Current: Current Medications Acetaminophen (Tylenol) 650 mg RECTAL Q4H PRN PRN Reason: Pain (mild 1-3) Albuterol/Ipratropium (Duoneb 3.0-0.5 Mg/3 Ml) 3 ml NEB Q4H PRN PRN Reason: Shortness Of Breath/wheezing Furosemide (Lasix) 40 mg PO DAILY [facility] Haloperidol Lactate (Haldol) 5 mg IM Q8H PRN PRN Reason: restlessness Hydralazine HCl (Apresoline) 20 mg PO Q6H PRN PRN Reason: Hypertension Hydromorphone HCl (Dilaudid) 0.25 mg IVPUSH Q2H PRN PRN Reason: Pain (severe 7-10) Sodium Chloride (Normal Saline) 1,000 mls @ 75 mls/hr IV ASDIRECTED [facility] Last Admin: 06/20/17 14:55 Dose: 75 mls/hr Lorazepam (Ativan) 1 mg IVPUSH Q6H PRN PRN Reason: anxiety Lorazepam (Ativan) 1 mg IM Q4H PRN PRN Reason: restlessness Lorazepam (Ativan) 2 mg IM Q6H PRN PRN Reason: Anxiety Metoprolol Tartrate (Lopressor) 5 mg IVPUSH Q4H PRN PRN Reason: Tachycardia Pantoprazole Sodium (Protonix Iv) 40 mg IVPUSH Q12H [facility] Last Admin: 06/20/17 23:52 Dose: Not Given Propranolol HCl (Inderal La) 80 mg PO DAILY [facility] Sodium Chloride (Saline Flush) 10 ml FLUSH ASDIRECTED PRN PRN Reason: Keep Vein Open Last Admin: 06/20/17 16:55 Dose: 10 ml Venlafaxine HCl (Effexor Xr) 75 mg PO DAILY [facility] Discontinued Medications Erythromycin (Erythromycin 0.5% Ophth Oint) gm EYERT BEDTIME [facility] Haloperidol Lactate (Haldol) Confirm Administered Dose 5 mg .ROUTE .STK-MED ONE Stop: 06/20/17 23:08 Last Admin: 06/20/17 23:25 Dose: Not Given Haloperidol Lactate (Haldol) 3 mg IM ONETIME ONE Stop: 06/20/17 23:18 Last Admin: 06/20/17 23:24 Dose: 3 mg Haloperidol Lactate (Haldol) 2 mg IM ONETIME ONE Stop: 06/20/17 23:21 Last Admin: 06/20/17 23:26 Dose: 2 mg Haloperidol Lactate (Haldol) 2 mg IM ONETIME ONE Stop: 06/20/17 23:39 Last Admin: 06/20/17 23:51 Dose: 2 mg Haloperidol Lactate (Haldol) 5 mg IM ONETIME ONE Stop: 06/21/17 08:21 Last Admin: 06/21/17 08:34 Dose: 5 mg Hydromorphone HCl (Dilaudid) 0.25 mg IVPUSH Q2H PRN PRN Reason: Pain (severe 7-10) Lorazepam (Ativan) Confirm Administered Dose 2 mg .ROUTE .STK-MED ONE Stop: 06/20/17 23:08 Last Admin: 06/20/17 23:25 Dose: Not Given Lorazepam (Ativan) 2 mg IM ONETIME ONE Stop: 06/20/17 23:22 Last Admin: 06/20/17 23:26 Dose: 2 mg Lorazepam (Ativan) 1 mg IM ONETIME ONE Stop: 06/20/17 23:39 Last Admin: 06/20/17 23:50 Dose: 1 mg Pantoprazole Sodium (Protonix Iv) 80 mg IVPUSH .BOLUS ONE Stop: 06/20/17 13:42 Last Admin: 06/20/17 14:56 Dose: 80 mg Consult PN Assessment/Plan Procedures: Procedures BLOOD TRANSFUSION SERVICE (01/06/16) BLOOD TYPING SEROLOGIC ABO (01/06/16) BLOOD TYPING SEROLOGIC RH(D) (01/06/16) CARDIOVASCULAR STRESS TEST (12/31/15) COMPATIBILITY TEST ANTIGLOB (01/06/16) CT ABD & PELVIS W/O CONTRAST (12/08/15) HT MUSCLE IMAGE SPECT MULT (12/31/15) RBC ANTIBODY SCREEN (01/06/16) ROUTINE VENIPUNCTURE (01/06/16) THER/PROPH/DIAG INJ IV PUSH (01/06/16) TISSUE EXAM BY PATHOLOGIST (01/14/16) TTE W/DOPPLER COMPLETE (01/03/17) Problem List Initiated/Reviewed/Updated: Yes My Orders Last 24 Hours: My Active Orders 06/21/17 11:26 Verify Patient Consent Obtain [RC] ASDIRECTED 06/21/17 Dinner Nothing per Oral After Midnight Diet [DIET] 06/22/17 01:30 Schedule Procedure [COMM] Routine Plan: surgical consult dictated ARIANNA
[2017-06-21] MEDS: Pantoprazole 40 MG Vial IVPUSH SCH (11:49)
[2017-06-21] MEDS ORDERED: Haloperidol Lactate 5 MG/ML SDV ONE (11:51)
[2017-06-21] MEDS ORDERED: Haloperidol Lactate 5 MG/ML SDV IVPUSH ONE ×3 (11:56→17:13)
[2017-06-21] MEDS ORDERED: LORazepam 2 MG/ML MDV ONE (12:05)
[2017-06-21] MEDS ORDERED: LORazepam 2 MG/ML MDV IVPUSH ONE ×3 (12:07→17:14)
[2017-06-21] MEDS ORDERED: Levalbuterol HCl 0.63 MG/3 ML Neb NEB PRN (13:57)
[2017-06-21] MEDS ORDERED: Furosemide 20 MG/2 ML VIAL IVPUSH ONE ×2 (14:14→16:33)
--- NOTE | 2017-06-21 15:15 | PCM.PREANE ---
Preanesthetic Assessment - Procedure Proposed Procedure: Diagnostic EGD - Anesthesia/Transfusion/Family Hx Anesthesia History: Prior Anesthesia Without Reaction Family History of Anesthesia Reaction: No Transfusion History: Prior Transfusion Without Reaction Intubation History: Unknown - Review of Systems General: No Symptoms Pulmonary: No Symptoms Cardiovascular: Other (AAA repair, HTN, HLD, stroke/TIA hx, afib) Neurological: Confusion (early onset dementia) Other: Reports: Depression, Anxiety - Physical Assessment Pulse: 121 O2 Sat by Pulse Oximetry: 97 Respiratory Rate: 20 Vital Signs: Last Vital Signs Temp 36.2 C 06/21/17 12:00 Pulse 121 H 06/21/17 13:53 Resp 20 06/21/17 12:00 BP 182/158 H 06/21/17 13:53 Pulse Ox 98 06/21/17 14:25 Height: 1.68 m Weight: 97.795 kg ASA Class: 3 - Lab Values: Laboratory Last Values WBC 9.39 K/mm3 (4.23-9.07) H 06/21/17 14:20 RBC 3.38 M/mm3 (4.63-6.08) L 06/21/17 14:20 Hgb 9.7 gm/L (13.7-17.5) L 06/21/17 14:20 Hct 30.9 % (40.1-51.0) L 06/21/17 14:20 MCV 91.4 fl (79.0-92.2) 06/21/17 14:20 MCH 28.7 pg (25.7-32.2) 06/21/17 14:20 MCHC 31.4 g/dl (32.2-35.5) L 06/21/17 14:20 RDW Std Deviation 50.2 fL (35.1-43.9) H 06/21/17 14:20 Plt Count 233 K/mm3 (163-337) 06/21/17 14:20 MPV 9.5 fl (9.4-12.3) 06/21/17 14:20 Neut % (Auto) 66.5 % (34.0-67.9) 06/21/17 14:20 Lymph % (Auto) 21.4 % (21.8-53.1) L 06/21/17 14:20 [place] % (Auto) 10.8 % (5.3-12.2) 06/21/17 14:20 Eos % (Auto) 1.0 (0.8-7.0) 06/21/17 14:20 Baso % (Auto) 0.2 % (0.1-1.2) 06/21/17 14:20 Neut # (Auto) 6.25 K/mm3 (1.78-5.38) H 06/21/17 14:20 Lymph # (Auto) 2.01 K/mm3 (1.32-3.57) 06/21/17 14:20 [place] # (Auto) 1.01 K/mm3 (0.30-0.82) H 06/21/17 14:20 Eos # (Auto) 0.09 K/mm3 (0.04-0.54) 06/21/17 14:20 Baso # (Auto) 0.02 K/mm3 (0.01-0.08) 06/21/17 14:20 PT 12.5 SECONDS (8.0-13.0) 06/20/17 14:03 INR 1.14 06/20/17 14:03 APTT 32 SECONDS (22-36) 06/20/17 14:03 Sodium 142 mEq/L (136-145) 06/21/17 14:20 Potassium 4.3 mEq/L (3.5-5.1) 06/21/17 14:20 Chloride 111 mEq/L (98-107) H 06/21/17 14:20 Carbon Dioxide 21 mEq/L (21-32) 06/21/17 14:20 Anion Gap 14.3 (5-15) 06/21/17 14:20 BUN 36 mg/dL (7-18) H 06/21/17 14:20 Creatinine 1.1 mg/dL (0.7-1.3) 06/21/17 14:20 Est Cr Clr Drug Dosing 49.94 mL/min 06/21/17 14:20 Estimated GFR (MDRD) > 60 mL/min (>60) 06/21/17 14:20 BUN/Creatinine Ratio 32.7 (14-18) H 06/21/17 14:20 Glucose 126 mg/dL (83-115) H 06/21/17 14:20 Calcium 9.1 mg/dL (8.5-10.1) 06/21/17 14:20 Magnesium 2.2 mg/dl (1.8-2.4) 06/21/17 14:20 Total Bilirubin 0.7 mg/dL (0.2-1.0) 06/20/17 14:03 AST 24 U/L (15-37) 06/20/17 14:03 ALT 25 U/L (16-63) 06/20/17 14:03 Alkaline Phosphatase 99 U/L (46-116) 06/20/17 14:03 Troponin I 1.188 ng/mL (0.00-0.056) H* 06/21/17 14:20 C-Reactive Protein 0.5 mg/dL (<1.0) 06/21/17 14:20 NT-Pro-B Natriuret Pep 3177 pg/mL (0-450) H 06/21/17 14:20 Total Protein 6.5 g/dl (6.4-8.2) 06/20/17 14:03 Albumin 3.1 g/dl (3.4-5.0) L 06/20/17 14:03 Globulin 3.4 gm/dL 06/20/17 14:03 Albumin/Globulin Ratio 0.9 (1-2) L 06/20/17 14:03 Blood Type B POSITIVE 06/20/17 02:03 Gel Antibody Screen Negative 06/20/17 02:03 - Allergies Allergies/Adverse Reactions: Allergies Allergy/AdvReac Type Severity Reaction Status Date / Time No Known Allergies Allergy Verified 06/20/17 12:50 PreAnesthesia Questionnaire Cardiovascular History: Reports: Afib Gastrointestinal History: Reports: GI Bleed Neurological History: Reports: TIA - Past Surgical History Cardiovascular Surgical History: Reports: Aneurysm, Other (See Below) Other Cardiovascular Surgeries/Procedures: aneurysm repair - SUBSTANCE USE Smoking Status *Q: Former Smoker Days Per Week of Alcohol Use: 1 Number of Drinks Per Day: 1 Total Drinks Per Week: 1 Recreational Drug Use History: No - HOME MEDS Home Medications: Home Meds Furosemide [Lasix] 40 mg PO DAILY 01/06/16 [History] Propranolol [Inderal LA] 80 mg PO DAILY 01/06/16 [History] Rivaroxaban [Xarelto] 1 tab PO DAILY 01/06/16 [History] atorvaSTATin [Lipitor] 80 mg PO DAILY 01/06/16 [History] B2/Vit A,C & E/Lut/Zeaxanth/Mn [Icaps] 1 tab PO DAILY 06/20/17 [History] Donepezil [Aricept] 10 mg PO BEDTIME 06/20/17 [History] Erythromycin Base [Erythromycin 0.5% Ophth Oint] 1 applic EYERT BEDTIME [History] Venlafaxine HCl [Venlafaxine ER] 75 mg PO DAILY 06/20/17 [History] - CURRENT (IN HOUSE) MEDS Current Meds: Current Medications Acetaminophen (Tylenol) 650 mg RECTAL Q4H PRN PRN Reason: Pain (mild 1-3) Albuterol/Ipratropium (Duoneb 3.0-0.5 Mg/3 Ml) 3 ml NEB Q4H PRN PRN Reason: Shortness Of Breath/wheezing Furosemide (Lasix) 40 mg PO DAILY [facility] Haloperidol Lactate (Haldol) 5 mg IM Q8H PRN PRN Reason: restlessness Hydralazine HCl (Apresoline) 20 mg PO Q6H PRN PRN Reason: Hypertension Hydromorphone HCl (Dilaudid) 0.25 mg IVPUSH Q2H PRN PRN Reason: Pain (severe 7-10) Sodium Chloride (Normal Saline) 1,000 mls @ 75 mls/hr IV ASDIRECTED [facility] Last Admin: 06/20/17 14:55 Dose: 75 mls/hr Levalbuterol HCl (Xopenex) 0.63 mg NEB Q6HRRT PRN PRN Reason: Dyspnea Last Admin: 06/21/17 14:23 Dose: 0.63 mg Lorazepam (Ativan) 1 mg IVPUSH Q6H PRN PRN Reason: anxiety Last Admin: 06/21/17 11:43 Dose: 1 mg Lorazepam (Ativan) 1 mg IM Q4H PRN PRN Reason: restlessness Lorazepam (Ativan) 2 mg IM Q6H PRN PRN Reason: Anxiety Metoprolol Tartrate (Lopressor) 5 mg IVPUSH Q4H PRN PRN Reason: Tachycardia Last Admin: 06/21/17 13:53 Dose: 5 mg Pantoprazole Sodium (Protonix Iv) 40 mg IVPUSH Q12H [facility] Last Admin: 06/21/17 11:49 Dose: Not Given Propranolol HCl (Inderal La) 80 mg PO DAILY [facility] Last Admin: 06/21/17 11:49 Dose: Not Given Sodium Chloride (Saline Flush) 10 ml FLUSH ASDIRECTED PRN PRN Reason: Keep Vein Open Last Admin: 06/20/17 16:55 Dose: 10 ml Venlafaxine HCl (Effexor Xr) 75 mg PO DAILY [facility] Last Admin: 06/21/17 11:49 Dose: Not Given Discontinued Medications Erythromycin (Erythromycin 0.5% Ophth Oint) gm EYERT BEDTIME [facility] Furosemide (Lasix) 20 mg IVPUSH ONETIME ONE Stop: 06/21/17 14:15 Haloperidol Lactate (Haldol) Confirm Administered Dose 5 mg .ROUTE .STK-MED ONE Stop: 06/20/17 23:08 Last Admin: 06/20/17 23:25 Dose: Not Given Haloperidol Lactate (Haldol) 3 mg IM ONETIME ONE Stop: 06/20/17 23:18 Last Admin: 06/20/17 23:24 Dose: 3 mg Haloperidol Lactate (Haldol) 2 mg IM ONETIME ONE Stop: 06/20/17 23:21 Last Admin: 06/20/17 23:26 Dose: 2 mg Haloperidol Lactate (Haldol) 2 mg IM ONETIME ONE Stop: 06/20/17 23:39 Last Admin: 06/20/17 23:51 Dose: 2 mg Haloperidol Lactate (Haldol) 5 mg IM ONETIME ONE Stop: 06/21/17 08:21 Last Admin: 06/21/17 08:34 Dose: 5 mg Haloperidol Lactate (Haldol) Confirm Administered Dose 5 mg .ROUTE .STK-MED ONE Stop: 06/21/17 11:52 Last Admin: 06/21/17 12:17 Dose: Not Given Haloperidol Lactate (Haldol) 2 mg IVPUSH ONETIME ONE Stop: 06/21/17 11:57 Last Admin: 06/21/17 12:12 Dose: 2 mg Hydromorphone HCl (Dilaudid) 0.25 mg IVPUSH Q2H PRN PRN Reason: Pain (severe 7-10) Lorazepam (Ativan) Confirm Administered Dose 2 mg .ROUTE .STK-MED ONE Stop: 06/20/17 23:08 Last Admin: 06/20/17 23:25 Dose: Not Given Lorazepam (Ativan) 2 mg IM ONETIME ONE Stop: 06/20/17 23:22 Last Admin: 06/20/17 23:26 Dose: 2 mg Lorazepam (Ativan) 1 mg IM ONETIME ONE Stop: 06/20/17 23:39 Last Admin: 06/20/17 23:50 Dose: 1 mg Lorazepam (Ativan) 1 mg IVPUSH ONETIME ONE Stop: 06/21/17 12:08 Last Admin: 06/21/17 12:13 Dose: 1 mg Lorazepam (Ativan) Confirm Administered Dose 2 mg .ROUTE .STK-MED ONE Stop: 06/21/17 12:06 Last Admin: 06/21/17 12:17 Dose: Not Given Pantoprazole Sodium (Protonix Iv) 80 mg IVPUSH .BOLUS ONE Stop: 06/20/17 13:42 Last Admin: 06/20/17 14:56 Dose: 80 mg
--- NOTE | 2017-06-21 15:26 | CR ---
Chest: Portable view of the chest was obtained. Comparison: Prior chest x-ray of 06/20/17. Heart is enlarged. Pulmonary vessels are minimally congested. Mild tortuosity of the thoracic aorta is seen. Slightly prominent mediastinum is seen. Trachea does not appear as narrowed on current exam as suggested previously. Old healed right clavicle fracture is again noted. Impression: 1. Mediastinal widening. Chest CT again recommended. Note is made that the trachea does not appear as narrowed as suggested on prior study. 2. Cardiomegaly and slight pulmonary vascular congestion is seen. Diagnostic code #3
[2017-06-21] MEDS ORDERED: Metoprolol Tartrate 5 MG/5 ML SDV IVPUSH ONE (16:24)
[2017-06-21] MEDS ORDERED: cefTRIAXone 2 GM in Sodium Chloride 0.9% 100 ML IV ONE (17:42)
--- NOTE | 2017-06-21 17:57 | PCM.DCSUM1 ---
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 (Saline Flush) 10 ml FLUSH ASDIRECTED PRN PRN Reason: Keep Vein Open Last Admin: 06/20/17 16:55 Dose: 10 ml Venlafaxine HCl (Effexor Xr) 75 mg PO DAILY [facility] Last Admin: 06/21/17 11:49 Dose: Not Given *Q Meaningful Use (DIS) - VTE *Q VTE Criteria *Q: - Stroke *Q Stroke Criteria *Q: - AMI *Q AMI Criteria *Q:
[2017-06-21] MEDS ORDERED: cefTRIAXone 2 GM Vial IVPUSH SCH (18:00)
--- NOTE | 2017-06-22 09:02 | CONS ---
CONSULTING PHYSICIAN: Damien Bates MD DATE OF CONSULTATION: 06/21/2017 HISTORY OF PRESENT ILLNESS: This is a 76-year-old who comes in through the emergency room with a history of GI bleeding, having dark tarry stools, and probably black-colored vomitus. His hemoglobin was stable at 9.5, and his blood pressures were 155/93. The patient does not take any non-steroidals, but he has had a problem similar to this in 2016, where he underwent upper GI endoscopy in [place] with coagulation of bleeders in 3 episodes. He has had a colonoscopy last year which was negative the family states. The patient is in a assisted with Alzheimer's, quite confused and combative at this moment. 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 MEDICATIONS: Per medication reconciliation form. REVIEW OF SYSTEMS: Unobtainable because of his combativeness. History from the family is that he was a former smoker. ALLERGIES: No known allergies. SOCIAL HISTORY: No alcohol or drug use. PHYSICAL EXAMINATION: GENERAL: Reveals a combative patient, unable to communicate. VITAL SIGNS: Temperature 97, pulse 94, respirations 18, blood pressure 150/88, pulse ox is 98. SKIN: Warm and dry. NEUROLOGIC: Moves all 4 extremities, could not test for sensory. HEENT: Oral cavity healthy. LUNGS: Breath sounds equal. HEART: Heart tones are regular rate. ABDOMEN: Seems to be soft. No tenderness, guarding, or rebound. PSYCHIATRIC: Confused and combative with some hallucinations. ASSESSMENT: Gastrointestinal bleed, stable vital signs and hemoglobin. PLAN: For upper GI endoscopy. Discussed this with the family, risks and complications, they understand and consent. MMODAL /[id number]
== END 2017-06-21 18:01 | DRG 377 ==
LOC: JD.ED 12:42 → JD.ICU 16:44
PROVIDERS: ADMIT Internal Medicine Cardiovascular Disease; ATTEND Internal Medicine Cardiovascular Disease
DX: K92.1 Melena (principal); I21.4 Non-ST elevation (NSTEMI) myocardial infarction; R41.82 Altered mental status, unspecified; D64.9 Anemia, unspecified; I48.91 Unspecified atrial fibrillation; R45.1 Restlessness and agitation; G30.9 Alzheimer's disease, unspecified; F02.80 Dementia in other diseases classified elsewhere, unspecified severity, without behavioral disturbance, psychotic disturbance, mood disturbance, and anxiety; I10 Essential (primary) hypertension; F32.9 Major depressive disorder, single episode, unspecified; E78.5 Hyperlipidemia, unspecified; Z86.73 Personal history of transient ischemic attack (TIA), and cerebral infarction without residual deficits; Z87.891 Personal history of nicotine dependence; Z79.01 Long term (current) use of anticoagulants; Z79.899 Other long term (current) drug therapy; Z66 Do not resuscitate
CPT/HCPCS: 36415; 71010; 80053; 84484; 85025; 85610; 85730; 86141; 86850; 86900; 86901; 93005; 96361; 96374; 99285; C9113; J7040; J7050; 51702; 70450; 70450-26; 80048; 81001; 83735; 83880; 85014; 85018; 86140; 93010; 94640; 99223; 99238; A9270-GY; J0696; J1630; J2060; J3490; J7030